=== PATIENT | male | born 2000 | race Caucasian/White ===

== ENCOUNTER 2022-02-14 02:35 | Emergency (ER) | payer OTHER ==
[~2022-02-14] VITALS: Ht 170.2 cm; Wt 61.4 kg
[2022-02-14 02:38] VITALS: TEMP 98.4
[2022-02-14 02:55] LABS: BASO % 0.5 % (0.0-2.0); EOS # 0.2 K/mm3 (0.0-0.7); EOS % 2.6 % (0.0-4.0); GRAN # 3.7 K/mm3 (1.4-6.5); GRAN % 47.7 % (42.2-75.2); HEMATOCRIT 45.9 % (42.0-52.0); HEMOGLOBIN 15.6 g/dl (13.5-18.0); LYMPH # 3.2 K/mm3 (1.2-3.4); LYMPH % 41.4 % (20.0-51.0); MEAN CELL VOLUME 87 fl (80.0-100.0); MEAN CORPUSCULAR HEMOGLOBIN 30 pg (27-31); MEAN CORPUSCULAR HGB CONC 34 g/dl (33.0-37.0); MEAN PLATELET VOLUME 9.9 fl (7.4-10.4); MONO # 0.6 K/mm3 (0.1-0.6); MONO % 7.7 % (1.7-9.3); PLATELET COUNT 187 K/mm3 (130-400); RED BLOOD COUNT 5.26 M/mm3 (4.20-5.60); REDCELL DISTRIBUTION WIDTH-CV 11.1 % (11.5-14.5)
[2022-02-14 03:18] LABS: ALANINE AMINOTRANSFERASE 14 U/L (0-55); ALBUMIN 4.9 gm/dL (3.5-5.0); ALKALINE PHOSPHATASE 66 U/L (40-150); ANION GAP 9 mmol/L (7-16); AST,SGOT 22 U/L (5-34); BILIRUBIN,TOTAL 0.4 mg/dL (0.2-1.2); BLOOD UREA NITROGEN 16 mg/dL (9-21); CALCIUM 9.5 mg/dL (8.4-10.2); CARBON DIOXIDE 26 mmol/L (22-29); CHLORIDE 107 mmol/L (98-107); CREATININE, serum 1.11 mg/dL (0.72-1.25); GLUCOSE 109 mg/dL (70-99); POTASSIUM 3.7 mmol/L (3.5-4.5); SODIUM 142 mmol/L (136-145)
[2022-02-14 03:31] LABS: TROPONIN-I < 0.010 ng/mL (0.00-0.033)
[2022-02-14 03:54] VITALS: BP 120/77; PULSE 80
== END 2022-02-14 04:10 | disposition home or self-care (01) ==
LOC: COL.ER 02:35
PROVIDERS: Emergency Medicine
DX: R07.89 Other chest pain (principal)